=== PATIENT | male | born 1930 | race Caucasian/White ===

== ENCOUNTER 2016-05-01 22:14 | Emergency (ER) | payer MEDICARE, BC ==
[2016-05-01 23:14] VITALS: BP 128/86
--- NOTE | 2016-05-02 00:40 | ER ---
DATE SEEN: 05/01/2016 CHIEF COMPLAINT: Nose bleed. HISTORY OF PRESENT ILLNESS: This is an 86-year-old male complaining nose bleeds on and off for the last week, but today started bleeding about 45 minutes ago and has not stopped, mostly from the right nostril. He takes Coumadin. REVIEW OF SYSTEMS: No headache or other bleeding tendencies. ALLERGIES: None. PHYSICAL EXAMINATION: GENERAL: Pleasant, not in distress. EARS, NOSE, AND THROAT: Revealed slow bleed from the anterior nasal area on the right. It was easily controlled with a nasal clamp. LABORATORY DATA: INR was 2.2. IMPRESSION: Epistaxis. PLAN: The nasal clamp was left in until tomorrow morning. The patient advised to take it out tomorrow and follow up pernestina /[id number] DIANN/DARIA
== END 2016-05-01 23:14 | disposition home or self-care (01) ==
LOC: FB.ED 22:14
DX: R04.0 Epistaxis (principal)
CPT/HCPCS: 36415; 85025; 85610; 99282